=== PATIENT | male | born 1970 | race Caucasian/White ===

== ENCOUNTER 2023-07-19 08:17 | Day surgery (SDC) | payer MEDICARE, SELFPAY ==
[2023-07-19] VITALS (8 sets, daily range): BP systolic 69–107; BP diastolic 40–93; PULSE 52–65; RESP 16; TEMP 36.1–36.2; O2SAT 95–100; BMI 30.2
[2023-07-19] MEDS: Lactated Ringers 1,000 ML 15 ML IV (09:00)
--- NOTE | 2023-07-19 09:12 | HP.PCM_ITS ---
History and Physical Date of Admission: 07/19/23 Intake Vital Signs 07/07/2408:07 Height 5 ft 6 in Weight: 189 lb BMI 30.4 BP 116/85 H Blood Pressure Location Rt brachial Position Sitting Respiration 17 Pulse 80 Pulse Source Monitor Temp 97.1 F L Temp Source Temporal Pulse Oximetry (%) 98 Oxygen Delivery Method room air Intake Visit Reasons: POSITIVE COLOGUARD Chief Complaint: positive cologuard Is patient in pain?: No Allergies Penicillins Allergy (Intermediate, Verified 07/07/23 09:13) PT UNSURE OF REACTION Medications ascorbic acid (vitamin C) 500 mg capsule mg PO 07/07/23 [History Confirmed 07/07/23] benztropine 1 mg tablet 1 mg PO DAILY 07/07/23 [History Confirmed 07/07/23] docusate sodium 100 mg capsule 200 mg PO BID 07/07/23 [History Confirmed 07/07/23] fluphenazine HCl 10 mg tablet 10 mg PO BID 07/07/23 [History Confirmed 07/07/23] fluphenazine HCl 5 mg tablet 5 mg PO DAILY 07/07/23 [History Confirmed 07/07/23] fluphenazine decanoate 25 mg/mL injection solution 25 mg IM Q2W 07/07/23 [History Confirmed 07/07/23] hydrocodone-acetaminophen 5-325mg 5mg-325mg 1 tab PO Q6H PRN 07/07/23 [History Confirmed 07/07/23] melatonin 3 mg capsule 3 mg PO HS 07/07/23 [History Confirmed 07/07/23] olanzapine 10 mg tablet 10 mg PO DAILY 07/07/23 [History Confirmed 07/07/23] olanzapine 20 mg tablet 20 mg PO QHS 07/07/23 [History Confirmed 07/07/23] omega-3 fatty acids 1,000 mg capsule 1,000 mg PO BID 07/07/23 [History Confirmed 07/07/23] omeprazole 40 mg capsule,delayed release 40 mg PO DAILY 07/07/23 [History Confirmed 07/07/23] propranolol 40 mg tablet 40 mg PO BID 07/07/23 [History Confirmed 07/07/23] simvastatin 20 mg tablet 20 mg PO QHS 07/07/23 [History Confirmed 07/07/23] vitamin B complex 1 tab PO DAILY 07/07/23 [History Confirmed 07/07/23] zolpidem 10 mg tablet 10 mg PO QHS 07/07/23 [History Confirmed 07/07/23] PFSH Medical History (Updated 07/07/23 @ 09:06 by Karime Damon) Anxiety Depression Surgical History (Updated 07/07/23 @ 09:07 by Karime Damon) H/O removal of cyst Family History (Updated 07/07/23 @ 09:07 by Karime Damon) Mother Breast cancer Hypertension Social History (Updated 07/07/23 @ 09:07 by Karime Damon) Smoking Status: Current every day smoker alcohol intake: never substance use type: does not use HPI HPI HPI: The patient is a 53-year-old male here for positive Cologuard. Patient does not note any blood in his stool or abdominal pain. Patient does not have family history of colon cancer. No prior colonoscopy. ROS General General: No weight change, appetite, fatigue, colon cancer, breast cancer or weakness HEENT HEENT: No difficulty swallowing, eye injury, eye surgery, swollen glands or hoarseness Endo Endocrine: No thyroid disease, diabetes mellitus, thyroid cancer, Hair loss, heat intolerance or cold intolerance Skin Skin: No rash or changing moles Musc Musculoskeletal: No back problems, arthritis, rheumatoid arthritis, gout or joint pain Cardio Cardiovascular: Yes high blood pressure; No murmur, pacemaker, heart disease, atrial fibrillation, heart attack, heart stent, palpitations, shortness of breat with exertion or chest pain Psych Psychiatric: Yes depression and anxiety; No hearing voices Resp Respiratory: No shortness of breath, No sleep apnea, No cough, No COPD, No asthma, No emphysema and No wheezing Gastro Gastrointestinal: No abdominal pain, No nausea or vomiting, No diarrhea, No constipation, No blood in stool, Yes acid reflux, No hemorrhoids, No ulcers, No gallbladder problem and No black,tarry stools [place] Hematologic: No blood thinners, No blood disorders, No bleeding, No anemia and No blood clots Neuro Neurologic: No system reviewed and no additional complaints, except as documente d, No as per HPI, No abnormal gait, No abnormal hearing, No abnormal movements, No abnormal speech, No behavioral changes, No burning sensations, No confusion, No convulsions, No disequilibrium, No dizziness, No localized weakness, No frequent falls, No headache(s), No lack of coordination, No loss of vision, No memory loss, No numbness, No other visual disturbances, No radicular pain, No restless legs, No sensory deficit, No syncope, No tingling, No tremor(s), No weakness and No other Exam Const General: cooperative Orientation: alert and oriented x3 HENMT Head: normal to inspection Neck Neck: normal visual inspection and full ROM Chest Chest palpation & inspection: normal inspection of the chest Resp Effort & Inspection: normal respiratory effort Auscultation: clear to auscultation bilaterally Cardio Rate: regular rate Rhythm: regular rhythm GI Inspection: non-distended Palpation: soft and nontender Skin General: no rashes or lesions noted Neuro General: patient alert and patient oriented x3 Extrem General: full ROM Psych Appearance: grossly normal Mental Status: mental status grossly normal Assessment and Plan Assessment and Plan (1) Positive colorectal cancer screening using Cologuard test: Status: Acute Plan: I explained endoscopy in detail to the patient. I explained the risks including but not limited to stroke or heart attack with anesthesia, perforation of the GI tract, bleeding, infection. I explained that any of these could necessitate further emergency surgery. The patient understands and all questions were answered sufficiently. The patient wishes to proceed with procedure. Tripp Hernandez MD Pager: [facility] [address] [place] [address], [address] [place] [address] Office: I have examined the patient and the H&P has been reviewed. There are no clinical changes since date of exam.
--- NOTE | 2023-07-19 09:15 | COLBX_PTH ---
PATHOLOGY RESULTS PATIENT: AMANDA RENE LOC: EN U#:[id number] AGE/SX: 53/M ROOM: RE07/19/[address]: Dr. Tripp Hernandez MD : 1970 BED: DIS: 07/19/2023 SPEC #: [id number] RECD: 07/19/23 12:04 STATUS: JHONY BURKE #: [id number] TROY: 07/19/23 09:[address]: Tripp Hernandez DEPT: SURGICAL PATHOLOGY RECD BY: Jessenia Daigle ENTERED: 07/19/23 12:28 SP TYPE: COLON BX Tissues: Sigmoid colon biopsy Rectum, NOS Procedures: Surgery Specimen Level IV HEADER OPERATION: Colonoscopy, polypectomy PRE-OP DIAGNOSIS: Positive Cologuard test TISSUE SUBMITTED: A - Sigmoid polyp, B - Rectal polyp MICROSCOPIC DIAGNOSIS A. Sigmoid colon polyp, biopsy: Tubular adenoma. B. Rectal polyp, biopsy: Hyperplastic polyp. AM:uyen 07/20/2023 MICROSCOPIC DESCRIPTION Slides are reviewed. GROSS DESCRIPTION A - Received in fixative is one container labeled with the patient's name and designated sigmoid polyp. The specimen consists of a turcios-pink polyp measuring 1.0 x 0.5 x 0.3 cm. Apparent base is inked black. The entire specimen is submitted in one cassette. B - Received in fixative is one container labeled with the patient's name and designated rectal polyp. The specimen consists of one irregular fragment of light turcios soft tissue that measures 0.3 x 0.3 x 0.1 cm. The specimen is totally submitted in one cassette. / LAZARA:uyen 07/19/2023 TC:5 CPT: 47510 x2
--- NOTE | 2023-07-19 09:51 | OP.CCLET_ITS ---
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 My impressions and recommendations are as follows: Impressions : - Two small polyps in the rectum and in the sigmoid colon, removed with a hot snare. Resected and retrieved. - The examination was otherwise normal on direct and retroflexion views. Recommendations : - Discharge patient to home. - Resume previous diet. - Continue present medications. - Await pathology results. - Repeat colonoscopy in 5 years for surveillance based on pathology results. My findings are described in the full procedure note, which is enclosed. If I can be of further assistance, please feel free to contact me at Doctor phone number(s): , Work: . Sincerely, Tripp Hernandez MD 07/19/2023 9:51:04 AM This report has been signed electronically.
--- NOTE | 2023-07-19 09:51 | OP.COLON_ITS ---
Patient Name: Gilmar Porter Procedure Date: 07/19/2023 9:13 AM Date of : 1970 Age: 53 Procedure: Colonoscopy Indications: Positive Cologuard test Providers: Tripp Hernandez MD Medicines: Monitored Anesthesia Care Patient Profile: Last Colonoscopy: none. The patient's first colonoscopy is today. Complications: No immediate complications. Procedure: Pre-Anesthesia Assessment: - Prior to the procedure, a History and Physical was performed, and patient medications and allergies were reviewed. The patient's tolerance of previous anesthesia was also reviewed. The risks and benefits of the procedure and the sedation options and risks were discussed with the patient. All questions were answered, and informed consent was obtained. Prior Anticoagulants: The patient has taken no anticoagulant or antiplatelet agents. After reviewing the risks and benefits, the patient was deemed in satisfactory condition to undergo the procedure. After I obtained informed consent, the scope was passed under direct vision. Throughout the procedure, the patient's blood pressure, pulse, and oxygen saturations were monitored continuously. The pediatric colonoscope was introduced through the anus and advanced to the cecum, identified by appendiceal orifice and ileocecal valve. The colonoscopy was performed without difficulty. The patient tolerated the procedure well. The quality of the bowel preparation was good. The ileocecal valve, appendiceal orifice, and rectum were photographed. Scope In: 9:25:21 AM Scope Withdrawal Time 0 hours 8 minutes 1 second Scope Out: 9:41:02 AM Total Procedure Duration Time 0 hours 15 minutes 41 seconds Findings: Two polyps were found in the rectum and sigmoid colon. The polyps were small in size. These polyps were removed with a hot snare. Resection and retrieval were complete. The exam was otherwise without abnormality on direct and retroflexion views. Impression: - Two small polyps in the rectum and in the sigmoid colon, removed with a hot snare. Resected and retrieved. - The examination was otherwise normal on direct and retroflexion views. Recommendation: - Discharge patient to home. - Resume previous diet. - Continue present medications. - Await pathology results. - Repeat colonoscopy in 5 years for surveillance based on pathology results. Procedure Code(s): --- Professional --- 70627, Colonoscopy, flexible; with removal of tumor(s), polyp(s), or other lesion(s) by snare technique Diagnosis Code(s): --- Professional --- D12.8, Benign neoplasm of rectum D12.5, Benign neoplasm of sigmoid colon R19.5, Other fecal abnormalities CPT copyright 2021 [employer]. All rights reserved. The codes documented in this report are preliminary and upon ophthalmic medical technologist review may be revised to meet current compliance requirements. Tripp Hernandez MD 07/19/2023 9:51:04 AM This report has been signed electronically. Number of Addenda: 0 Note Initiated On: 07/19/2023 9:13 AM
== END 2023-07-19 10:29 | disposition home or self-care (01) ==
LOC: EN 08:47 → AC 08:48
PROVIDERS: PCP Nurse Practitioner Family; Referring Provider Nurse Practitioner Family; Visit Provider Surgery
PROC: 0DJD8ZZ Inspection of Lower Intestinal Tract, Via Natural or Artificial Opening Endoscopic (ICD-10-PCS; CPT 45378; principal; 2023-07-19 09:10)
DX: Z12.11 Encounter for screening for malignant neoplasm of colon (principal); Z90.49 Acquired absence of other specified parts of digestive tract; F17.200 Nicotine dependence, unspecified, uncomplicated; D12.8 Benign neoplasm of rectum; D12.5 Benign neoplasm of sigmoid colon; R19.5 Other fecal abnormalities
CPT/HCPCS: 45385; 88305; J7120; J2405

== ENCOUNTER → 2024-08-15 | Outpatient (CLI) | payer MEDICARE, SELFPAY ==
[2024-08-15 13:05] LABS: Absolute Lymphocyte Count 1.82 X10^3/uL (0.83-4.51); Basophil# 0.08 X10^3/uL; Basophil% 0.9 % (0-1); Eosinophil# 0.22 X10^3/uL; Eosinophils% 2.5 % (0-5); Hematocrit 46.2 % (40-54); Hemoglobin 15.5 g/dL (13.0-16.5); Lymphocyte # 1.82 X10^3/ul (0.83-4.51); Lymphocyte % 20.8 % (19-41); Mean Corp Hgb Conc 33.5 g/dL (32-36); Mean Corpuscular Hgb 30.4 pg (27.0-32.0); Mean Corpuscular Volume 90.6 fL (80-94); Monocyte# 0.66 X10^3/uL; Monocyte% 7.5 % (0-10); NRBC Flagged by Analyzer 0 % (0-5); Neutrophil # 5.97 X10^3/uL (2.7-7.7); Neutrophil % 68.1 % (47-70); Platelet Count 349 K/mm3 (150-450); RBC Distribution Width CV 12.7 % (11.6-14.6); RBC Distribution Width SD 41.5 fl (35.1-43.9); White Blood Count 8.8 K/mm3 (4.4-11.0)
[2024-08-15 14:03] LABS: ALB/GLOB Ratio 1.4 RATIO (0.9-2.4); AST(SGOT) 30 U/L (<=37); Alanine Aminotransfer ALT/SGPT 53 U/L (<=46); Alkaline Phosphatase 80 U/L (40-129); Anion Gap 12 (5-15); BUN 17 mg/dL (4-19); BUN/Creat Ratio 20.7 RATIO (10-20); Calcium 9.2 mg/dL (7.6-11.0); Carbon Dioxide 25.9 mmol/L (22.0-29.0); Chloride 105 mmol/L (96-108); Cholesterol 164 mg/dL (<=200); Creatinine, Serum 0.8 mg/dL (0.8-1.3); EST Glomerular Filtration Rate 104 (>60); Globulin 2.9 g/dL (2.2-4.2); Glucose 90 mg/dL (70-99); High Density Lipoprotein 37 mg/dL; Low Density Lipoprotein Calc. 93 mg/dL; Potassium 3.9 mmol/L (3.3-5.1); Protein, Total 6.8 g/dL (5.9-8.4); Sodium Level 142 mmol/L (133-145); Total Bilirubin 0.39 mg/dL (0.00-1.30); Triglycerides 172 mg/dL; Very Low Density Lipoprotein 34 mg/dL (5-40); cholesterol:hdl ratio screen 4.46
== END | disposition home or self-care (01) ==
LOC: VSLAB 09:11
PROVIDERS: PCP Nurse Practitioner Family
DX: Z00.00 Encounter for general adult medical examination without abnormal findings (principal); E78.5 Hyperlipidemia, unspecified; Z12.5 Encounter for screening for malignant neoplasm of prostate
CPT/HCPCS: 36415; 80053; 80061; 84153; 84443; 85025; G0103